=== PATIENT | female | born 2000 | race Caucasian/White ===

== ENCOUNTER 2020-01-31 16:18 | Emergency (ER) | payer BC ==
[2020-01-31] MEDS ORDERED: Lidocaine 1% 30 ML SDV INJECT ONE (16:43)
[2020-01-31] MEDS ORDERED: Bupivacaine 0.5% 30 ML SDV INJECT PRN (16:43)
[2020-01-31] MEDS ORDERED: Take Home: Cephalexin 500 MG Cap, 4 Cap Pack PO ONE (17:05)
--- NOTE | 2020-01-31 17:11 | EDM.PDOC ---
ED HPI GENERAL MEDICAL PROBLEM - General Stated Complaint: SLIVER IN FINGER Time Seen by Provider: 01/31/20 16:45 Source of Information: Reports: Patient History Limitations: Reports: No Limitations - History of Present Illness INITIAL COMMENTS - FREE TEXT/NARRATIVE: Patient comes emergency department today with complaints of a splinter under her fingernail of the right fourth finger. Patient last night was trying to push open a door when she accidentally got a sliver stuck up under her right fourth fingernail. She did attempt to get it out last night although it was coming apart in pieces. Today she had increased pain and pressure to the right finger. She denies any fever or chills. Her last tetanus immunization was when she was 16. Right Finger-Ring Pain Score (Numeric/FACES): 3 - Related Data Home Meds: Home Meds cephALEXin [Keflex] 500 mg PO QID #20 capsule 01/31/20 [Rx] ED ROS GENERAL - Review of Systems Review Of Systems: Comprehensive ROS is negative, except as noted in HPI. ED EXAM, GENERAL - Physical Exam Exam: See Below Exam Limited By: No Limitations General Appearance: Alert, WD/WN, No Apparent Distress Respiratory/Chest: No Respiratory Distress Cardiovascular: Normal Peripheral Pulses, Regular Rate, Rhythm Extremities: No: Normal Inspection (Examination is isolated to the right hand. The patient has under her fingernail of the fourth finger of the right hand distal to proximal approximately 1 cm long foreign body. There is no erythema induration or swelling. The patient is able to flex and extend at the DIP PIP and MCP joint. There is no drainage or discharge.) Course - Vital Signs Last Recorded V/S: Last Vital Signs Temp 37.0 C 01/31/20 16:36 Pulse 83 01/31/20 16:36 Resp 12 01/31/20 16:36 BP 128/79 01/31/20 16:36 Pulse Ox 98 01/31/20 16:36 - Orders/Labs/Meds Orders: Active Orders 24 hr Category Date Time Status Bupivacaine 0.5% [Marcaine 0.5%] Med 01/31/20 16:43 Active 30 ml INJECT ASDIRECTED PRN Medication Orders Bupivacaine HCl (Marcaine 0.5%) 30 ml INJECT ASDIRECTED PRN PRN Reason: Other Meds: Medications Generic Name Dose Route Start Last Admin Trade Name Freq PRN Reason Stop Dose Admin Bupivacaine HCl 30 ml 01/31/20 16:43 Marcaine 0.5% INJECT ASDIRECTED PRN Other Discontinued Medications Generic Name Dose Route Start Last Admin Trade Name Eddie PRN Reason Stop Dose Admin Cephalexin 1 packet 01/31/20 17:05 01/31/20 17:33 Take Home: Cephalexin 500 Mg, 4 Cap Pack PO 01/31/20 17:06 1 packet ONETIME ONE Administration Lidocaine HCl 30 ml 01/31/20 16:43 Xylocaine-Mpf 1% INJECT 01/31/20 16:44 ONETIME ONE - Re-Assessments/Exams Free Text/Narrative Re-Assessment/Exam: 01/31/20 18 After verbal consent was obtained. Digital block of the right fourth finger. 0.5% bupivacaine without epinephrine and 1% lidocaine without epinephrine was mixed in a 50-50 fashion. The base of the right fourth finger was cleansed with iodine and allowed to dry the appropriate time period. After this 2.5 mils of the above mixture was injected medially laterally and anteriorly to the right fourth finger. There was no active bleeding. The patient tolerated the procedure well. And good anesthesia was obtained. The I attempted with a very fine forceps to get under the fingernail between the nailbed and remove the splinter. Although it was coming apart in pieces. I then took a small iris scissors and the nail from the nailbed on the lateral aspect of the area of concern. I then was able to remove this entirely under the nail. I rinsed it with sterile saline and iodine with a 24- gauge Angiocath. There was no active bleeding. Put her on Keflex for the next 5 days. Soaks at home to prevent infection. She is comfortable with this plan and her questions are answered. Departure - Departure Time of Disposition: 17:05 Disposition: Home, Self-Care 01 Clinical Impression: Foreign body of finger of right hand Qualifiers: Encounter type: initial encounter Qualified Code(s): S60.459A - Superficial foreign body of unspecified finger, initial encounter - Discharge Information Prescriptions: cephALEXin [Keflex] 500 mg PO QID #20 capsule Instructions: Sliver Removal, Care After Additional Instructions: Tylenol and or Ibuprofen as needed for pain. Soak the finger in warm/hot water with corrie dish soap and epsom salts 4 times a day. Watch for signs of infection. Cephalexin 1 capsule 4 times a day for the next 5 days. Starter pack from the ED and RX sent electronically to [facility]. Return to the ED if new or worsening symptoms. Follow up with primary care provider in the next 4-6 days if not improving sooner if worse Sepsis Event Note - Focused Exam Vital Signs: Vital Signs Temp Pulse Resp BP Pulse Ox 01/31/20 16:36 37.0 C 83 12 128/79 98 Date Exam was Performed: 01/31/20 Time Exam was Performed: 18:29 - My Orders Last 24 Hours: My Active Orders 01/31/20 16:43 Bupivacaine 0.5% [Marcaine 0.5%] 30 ml INJECT ASDIRECTED PRN - Assessment/Plan Last 24 Hours: My Active Orders 01/31/20 16:43 Bupivacaine 0.5% [Marcaine 0.5%] 30 ml INJECT ASDIRECTED PRN Assessment:: Foreign body sliver removed from under the nail of the right 4th finger. Digital Block. Plan: Tylenol and or Ibuprofen as needed for pain. Soak the finger in warm/hot water with corrie dish soap and epsom salts 4 times a day. Watch for signs of infection. Cephalexin 1 capsule 4 times a day for the next 5 days. Starter pack from the ED and RX sent electronically to [facility]. Return to the ED if new or worsening symptoms. Follow up with primary care provider in the next 4-6 days if not improving sooner if worse
== END 2020-01-31 17:35 | disposition home or self-care (01) ==
LOC: VM.ED 16:18
DX: S60.454A Superficial foreign body of right ring finger, initial encounter (principal); W45.8XXA Other foreign body or object entering through skin, initial encounter
CPT/HCPCS: 64450; 99283-25; A9270-GY

== ENCOUNTER 2025-07-23 20:09 | Emergency (ER) | payer OTHER ==
[2025-07-23] MEDS: EPINEPHrine 1 MG/ML SDV IM ONE (20:17)
[2025-07-23] MEDS ORDERED: Sodium Chloride 0.9% 10 ML Syringe FLUSH PRN (20:20)
[2025-07-23] MEDS: Lactated Ringers 1,000 ML IV ONE (20:35)
[2025-07-23] MEDS: methylPREDNISolone Sodium Succinate 125 MG/2 ML SDV IVPUSH ONE (20:39)
== END 2025-07-23 21:25 | disposition home or self-care (01) ==
LOC: VM.ED 20:09
DX: T78.09XA Anaphylactic reaction due to other food products, initial encounter (principal); Z91.018 Allergy to other foods
CPT/HCPCS: 96361; 96372; 96374; 96375; 99283-25; 99284; J0169; J1308; J2919; J7120